=== PATIENT | male | born 1995 | race Caucasian/White ===

== ENCOUNTER 2017-05-04 20:53 | Emergency (ER) | payer OTHER ==
[~2017-05-04] VITALS: Ht 177.8 cm; Wt 102.5 kg
[~2017-05-04 20:53] MED LIST: DESYREL100 MG; VYVANSE50 MG
[2017-05-04 22:44] VITALS: BP 144/83
== END 2017-05-04 22:45 | disposition home or self-care (01) ==
LOC: EME 20:53
DX: S90.32XA Contusion of left foot, initial encounter (principal); W20.8XXA Other cause of strike by thrown, projected or falling object, initial encounter
CPT/HCPCS: 73630; 99281; 99283